=== PATIENT | female | born 1950 | race Caucasian/White ===

== ENCOUNTER 2020-08-27 14:03 | Emergency (ER) | payer MEDICARE, OTHER ==
[2020-08-27 14:19] VITALS: RESP 16
[2020-08-27] MEDS ORDERED: SODIUM CHLORIDE 0.9% 1,000 ML IV ONE (14:43)
[2020-08-27] MEDS ORDERED: SODIUM CHLORIDE 0.9% 1,000 ML IV SCH (14:45)
[2020-08-27 15:16] LABS: Basophils % (A) 0 %; Eosinophils % (A) 0 %; HGB 13.6 gm/dL (11.4-16.0); Lymphocytes # (A) 0.5 k/uL (1.0-4.8); Lymphocytes % (A) 17 %; MCH 28.4 pg (25.0-35.0); MCHC 34.9 g/dL (31.0-37.0); MCV 81.4 fL (80.0-100.0); Mean Platelet Volume 8.4; Monocytes # (A) 0.2 k/uL (0-1.0); Monocytes % (A) 8 %; Neutrophils % (A) 72 %; Platelet Count 173 k/uL (150-450); RDW 13.5 % (11.5-15.5); WBC 2.8 k/uL (3.8-10.6)
[2020-08-27 15:21] LABS: Albumin 3.6 g/dL (3.5-5.0); Calcium 8.5 mg/dL (8.4-10.2); Potassium 3.6 mmol/L (3.5-5.1); Total Bilirubin 0.7 mg/dL (0.2-1.3); Total Protein 6.1 g/dL (6.3-8.2)
--- NOTE | 2020-08-27 16:49 | CT ---
EXAMINATION TYPE: CT brain dave varela con DATE OF EXAM: 08/27/2020 COMPARISON: None HISTORY: fall CT DLP: 1235.1 mGycm Automated exposure control for dose reduction was used. Images obtained of the brain and cervical spine without contrast. Ventricles and sulci appear normal. There is no mass effect nor midline shift. There is no sign of in tracranial hemorrhage. Mastoid sinuses appear normal. Skull base is intact. Calvarium is intact. Ther e is no evidence of cerebral edema. The cervical vertebra have normal alignment. Disc spaces are fairly normal. Posterior elements are in tact. Facet joints are intact. There is minor spurring of the facet joints in the mid cervical spine. IMPRESSION: Negative CT scan of the brain. Minor degenerative spurring in the facet joints of the cervical spine. No fracture. There is right side C4-5 uncovertebral spurring and mild neural foraminal impingement.
[2020-08-27 16:51] VITALS: PULSE 78
--- NOTE | 2020-08-27 17:04 | CT ---
EXAMINATION TYPE: CT abdomen pelvis w con DATE OF EXAM: 08/27/2020 COMPARISON: None HISTORY: Diffuse abdominal pain, diarrhea. CT DLP: 642.5 mGycm Automated exposure control for dose reduction was used. CONTRAST: Performed with IV Contrast, patient injected with 100 mL of Isovue 300. Images obtained from the diaphragm to the floor the pelvis with IV contrast. There is some mild infiltrate and atelectasis at the lung bases. Heart is enlarged. There is no peric ardial effusion. There is hiatal hernia. Hernia appears to contain a gastric antrum. There is no evid ence of gastric mass. The gastric antrum is posterior to the stomach. There is mild elevation of the left diaphragm. Liver and gallbladder appear normal. The bile ducts are not dilated. Spleen is intact. There is no ev idence of pancreatic mass. There is no adrenal mass. Kidneys show satisfactory contrast opacification. There is no hydronephrosi s. Delayed images show normal renal excretion. There is no retroperitoneal adenopathy. The bladder di stends smoothly. There is no inguinal hernia. Uterus is retroverted. There is no evidence of a pelvic mass. There is no free fluid in the pelvis. Appendix is posterior in the pelvis and appears normal. There is no mesenteric edema. There is no ascites or free air. There is no sign of a bowel obstructio n. There is no intestinal wall thickening. The lumbar vertebra have normal alignment. There is vacuum disc at L5-S1. Disc spaces overall fairly well-maintained. There is no compression fracture. The bon y pelvis is intact. Hip joints are intact. IMPRESSION: Hiatal hernia. No acute abnormality in the abdomen pelvis. Normal appendix. I do not see a cause for the patient's symptoms. There is some mild infiltrate and atelectasis at both lung bases. Mild cardiomegaly.
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
[2020-08-27 17:43] VITALS: BP 128/71; TEMP 98.2
== END 2020-08-27 17:41 | disposition home or self-care (01) ==
LOC: EC 14:03
DX: R19.7 Diarrhea, unspecified (principal); R10.84 Generalized abdominal pain; R11.0 Nausea; D72.819 Decreased white blood cell count, unspecified
CPT/HCPCS: 36415; 80053; 83605; 85025; 87635; 72125; 70450; 74177; 99284; 96360; 96361 ×2; Q9967

== ENCOUNTER → 2024-06-15 | Outpatient (CLI) | payer MEDICARE | LOC: CPPFTMAIN 13:05 | PROVIDERS: ATTEND Family Medicine | DX: R05.3 Chronic cough (principal); Z87.891 Personal history of nicotine dependence | CPT/HCPCS: 94060; 94726; 94729 ==